=== PATIENT | male | born 1980 | race Caucasian/White ===

== ENCOUNTER 2024-10-15 11:20 | Emergency (ER) | payer OTHER, SELFPAY ==
[2024-10-15 11:21] VITALS: BMI 25.7
[2024-10-15 11:33] VITALS: BP 143/93; PULSE 60; RESP 18; TEMP 36.9; O2SAT 97
--- NOTE | 2024-10-15 11:33 | EKG_ITS ---
[facility] Test Date: 2024-10-15 Pat Name: CELINA TODD Department: Room: - Gender: Male [employer]: : 1980 Requested By: Luis Sandy Order Number: [id number] Reading MD: Luis Sandy Measurements Intervals [place] Rate: 62 P: 67 NM: 178 QRS: 81 QRSD: 84 T: 48 QT: 355 QTc: 363 Interpretive Statements SINUS RHYTHM NONSPECIFIC T-WAVE ABNORMALITY No previous ECG available for comparison /[id number]/[id number]
--- NOTE | 2024-10-15 11:33 | XR_ITS ---
Examination: CT brain head without contrast. 2-D sagittal coronal reconstructions Date and time of exam 01/15/2025 1311 hours INDICATIONS: Paresthesias to the face with dizziness today CTDI: vol (mGy):50 DLP: (mGycm):958 Technique: Multiple CT axial sections of the brain have been obtained, 5 mm slice thickness. Contrast has not been administered. 2-D sagittal, coronal reconstructions have been obtained Low dose protocols were performed. One or more of the following dose reduction techniques were used; automated exposure control, adjustment of the mA and/or KV according to patient size, use of iterative reconstruction technique. Findings: No significant ventricular enlargement. Intra-axial or extra-axial hemorrhage density is not seen. No mass effect or midline shift Basal cisterns are not remarkable. Fourth ventricle is midline. Cranial vault intact. Impression: Negative for acute hemorrhage, mass effect or midline shift Advise clinical correlation follow-up accordingly
--- NOTE | 2024-10-15 11:33 | XR_ITS ---
Examination: PA lateral chest 2 views TECHNIQUE: Upright PA lateral chest 2 views Date and time: October 15, 2024 1151 hours Comparison September 14, 2014 INDICATIONS: Dizziness today. FINDINGS: Normal heart size. Lungs are clear. Moderate osteopenia with old left-sided rib fractures IMPRESSION: No active disease
--- NOTE | 2024-10-15 11:35 | EDRME_ITS ---
Rapid Medical Screening Exam [facility] Arrival date/time: 10/15/24 11:20 44-year-old male with no known medical history presents to the emergency room with a chief complaint of dizziness, lightheadedness, difficulty concentrating, chest pain and facial tingling that began yesterday afternoon. Patient was seen by Dr. Juares his primary care provider and was sent to the emergency room. I have greeted and performed a focused initial assessment of this patient. A comprehensive ED assessment and evaluation of the patient, analysis of all test results, and completion of the medical decision making process will be conducted by additional ED providers. Chief Complaint: General Adult/Misc Complain Vital signs: Vital Signs Temperature 98.5 F 10/15/24 11:33 Pulse Rate 60 10/15/24 11:33 Respiratory Rate 18 10/15/24 11:33 Blood Pressure 143/93 H 10/15/24 11:33 Pulse Oximetry (%) 97 10/15/24 11:33 Oxygen Delivery Method Room Air 10/15/24 11:33 Vital signs reviewed by provider: Yes
[2024-10-15 12:09] LABS: Basophils # (Auto) 0.1 Thou/mm3 (0.0-0.2); Basophils % (Auto) 1 % (0-2.5); Eosinophils # (Auto) 0.1 Thou/mm3 (0.0-0.5); Eosinophils % (Auto) 2 % (0-10); Hematocrit 46.2 % (41.0-53.0); Hemoglobin 16.1 g/dL (13.5-16.0); Immature Granulocytes % (Auto) 1 % (0-0); Immature Granulocytes Auto 0.05 Thou/mm3 (0.00-0.00); Lymphocytes # (Auto) 2.2 Thou/mm3 (1.0-4.8); Lymphocytes % (Auto) 33 % (10-50); Mean Corpuscular HGB Conc 34.8 g/dl (31.0-37.0); Mean Corpuscular Hemoglobin 30.4 pg (25.0-35.0); Mean Corpuscular Volume 87 fL (80-100); Monocytes # (Auto) 0.7 Thou/mm3 (0.0-0.8); Monocytes % (Auto) 10 % (0-12); Neutrophils # (Auto) 3.6 Thou/mm3 (1.8-7.7); Neutrophils % (Auto) 54 % (37-80); Nucleated Red Blood Cell % 0 /100 WBC (0); Platelet Count 160 Thou/mm3 (140-440); Red Blood Count 5.29 Miln/mm3 (4.50-5.90); White Blood Count 6.7 Thou/mm3 (3.8-10.6)
[2024-10-15 12:13] LABS: Collection Type, Urine Clean Catch; Squamous Epithelial Cell,Urine 0 /hpf (0-5)
[2024-10-15 12:32] LABS: B-Type Natriuretic Peptide 22 pg/mL (0-100)
[2024-10-15 12:41] LABS: Bilirubin,Urine Negative (Negative); Blood,Urine Negative (Negative); Clarity,Urine Clear (Clear/Hazy); Color,Urine Colorless (Lt Yel-Yel); Glucose, Urine Negative (Negative); Ketones,Urine Negative (Negative); Leukocyte Esterase,Urine Negative (Negative); Nitrite,Urine Negative (Negative); PH,Urine 6.5 (5.0-7.0); Protein,Urine Negative (Neg - Trace); RBC,Urine < 1 /hpf (0-3); Specific Gravity,Urine 1.007 (1.001-1.035); Urobilinogen,Urine Negative mg/dL (0.0-1.0); WBC,Urine < 1 /hpf (0-5)
[2024-10-15 12:41] LABS: Alanine Aminotransferase 93 U/L (10-49); Albumin, Serum 4.6 gm/dL (3.5-5.0); Albumin/Globulin Ratio 1.8 (1.2-2.2); Alkaline Phosphatase 71 U/L (46-116); Anion Gap 8 (7-16); Aspartate Amino Transferase 56 U/L (0-34); BUN/Creatinine Ratio 16 Ratio (12-20); Bilirubin,Total 0.6 mg/dL (0.3-1.2); Blood Urea Nitrogen 19 mg/dL (9-23); Calcium 9.2 mg/dL (8.3-10.6); Calcium (Corrected) 9.2 mg/dL (8.5-10.1); Carbon Dioxide 27.6 mMol/L (20.0-31.0); Chloride 103 mMol/L (98-107); Creatine Kinase 518 U/L (34-171); Creatinine (Component) 1.2 mg/dL (0.6-1.3); Free T4 (Free Thyroxine) 1.24 ng/dL (0.89-1.76); Globulin 2.6 gm/dL (2.3-3.5); Glucose 114 mg/dL (74-106); Magnesium 2.1 mg/dL (1.6-2.6); Osmolality,Calculated 280 (275-295); Potassium 4.3 mMol/L (3.4-5.1); Sodium 139 mMol/L (136-145); Thyroid Stimulating Hormone 2.37 uIU/mL (0.55-4.78); Total Protein 7.2 gm/dL (5.7-8.2); Troponin I < 0.020 ng/mL (0.0-0.045); eGFR > 60 See Note
[2024-10-15 13:25] LABS: Amphetamine/Methamp Scrn,U Negative (Negative); Barbiturate Screen,Urine Negative (Negative); Benzodiazepines Screen,Urine Negative (Negative); Benzoylecgonine Screen, Ur Negative (Negative); Opiate Screen,Urine Negative (Negative); THC Screen,Urine Negative (Negative)
[2024-10-15 14:36] LABS: Fentanyl Screen,Urine Negative (Negative)
[2024-10-15 16:45] LABS: Troponin I < 0.020 ng/mL (0.0-0.045)
--- NOTE | 2024-10-15 17:09 | PD.EDADULT ---
ED General RME/HPI General Chief complaint: General Adult/Misc Complain Stated complaint: DIZZY, TROUBLE SPEAKING, CHEST PAIN SINCE 7PM Time Seen by Provider: 10/15/24 17:03 Arrival date/time: 10/15/24 11:20 RME / HPI RME / HPI narrative: 44-year-old male with no known medical history presents to the emergency room with a chief complaint of dizziness, lightheadedness, difficulty concentrating, chest pain and facial tingling that began yesterday afternoon. Symptoms is almost gone now. Patient was seen by Dr. Juares his primary care provider and was sent to the emergency room. Patient is ambulatory. Denies any fever. Denies any head trauma or fall. Related Data Allergies Allergy/AdvReac Type Severity Reaction Status Date / Time NKA* Allergy Uncoded 10/15/24 11:23 Review of Systems Review of Systems Narrative Review of Systems: Review of system reviewed and within normal limits except mentioned in HPI ED Exam Narrative Physical exam: VITAL SIGNS: Reviewed. GENERAL APPEARANCE: Alert and interactive, follows commands, no acute distress, HEAD AND FACE: Non-traumatic. ENT: PERRL, pink conjunctivitis, eyelid no trauma, Mucous membrane moist. NECK: Supple, nontender, no nuchal rigidity. CHEST: No tenderness, no crepitus, no paradoxical movement, no retractions. LUNGS: Clear, well ventilated, symmetric, no rales, no wheezing, no ronchi, no stridor, good breath sounds bilaterally. HEART: Regular rate, regular rhythm, no murmur, no gallops. ABDOMEN: Soft, positive bowel sounds, nondistended, no guarding, nontender, no rebound, no masses, RECTAL: Deferred. GENITAL: Deferred. NEUROLOGICAL: Gross motor function intact sensory function intact, Appropriate for age. MUSCULOSKELETAL: low back nontender, full range of motion. EXTREMITIES: Nontender, full range of motion. SKIN: Color pink, dry, no rash, no lacerations, no abrasions, no contusions. LYMPHATICS: Deferred. Course Quality Measures none Orders Category Date Time Status EKG (ED ONLY) *Do not use* NOW Care 10/15/24 11:[address] head/brain wo con Stat Exams 10/15/24 11:33 Completed EKG (ED Only) Stat Exams 10/15/24 11:33 Draft XR chest 2V Stat Exams 10/15/24 11:33 Completed B-Type Natriuretic Peptide Stat Lab 10/15/24 11:49 Completed CBC Stat Lab 10/15/24 11:49 Completed CK [Creatine Kinase] Stat Lab 10/15/24 11:49 Completed Comprehensive Metabolic Panel Stat Lab 10/15/24 11:49 Completed Drug Screen,Urine Stat Lab 10/15/24 12:08 Completed Free T4 (Free Thyroxine) Stat Lab 10/15/24 11:49 Completed Magnesium Stat Lab 10/15/24 11:49 Completed TSH [Thyroid Stimulating Hormone] Stat Lab 10/15/24 11:49 Completed Troponin I Stat Lab 10/15/24 11:49 Completed Troponin I Stat Lab 10/15/24 16:10 Completed Urinalysis Stat Lab 10/15/24 12:08 Completed Vital Signs Vital signs: Vital Signs Temperature 98.5 F 10/15/24 11:33 Pulse Rate 60 10/15/24 11:33 Respiratory Rate 18 10/15/24 11:33 Blood Pressure 143/93 H 10/15/24 11:33 Pulse Oximetry (%) 97 10/15/24 11:33 Oxygen Delivery Method Room Air 10/15/24 11:33 Discharge Plan Plan Patient Disposition: HOME (Self Care) Discharge Disposition comment: Stable Prescriptions/Referrals Referrals: Holley Juares MD [Primary Care Provider] - In 1 week Problem List Clinical Impression: Headache Patient/Caregiver Discharge Instructions Discharge Activity: activity as tolerated Education Materials: Self-Care for Headaches Additional Instructions: Thank you for the opportunity for serving you today. You are stable for discharged . You are advised to: Follow-up with your PCP in 1 to 2 days Return to ED for worsening of symptoms Increase oral fluids Take [id number] Tylenol or Motrin as needed for headache Print Language: Pashto Stand Alone Forms: Tabitha Award Info., Patient Portal Info Letter PA/B[employer]K [employer] INSTALLER Supervising Physician PA/JOSE D Supervising Physician: MD Miriam MDM Narrative MDM hospital course (for use when minimal MDM required): 44-year-old male with no known medical history presents to the emergency room with a chief complaint of dizziness, lightheadedness, difficulty concentrating, chest pain and facial tingling that began yesterday afternoon. Symptoms is almost gone now. Patient was seen by Dr. Juares his primary care provider and was sent to the emergency room. Patient is ambulatory. Denies any fever. Denies any head trauma or fall. CT scan of the head came back unremarkable. Patient's workup also came back unremarkable urinalysis no UTI. Prior to discharge patient was noted to be ambulatory straight gait, denies any headache denies any dizziness denies any symptoms. Patient appears nontoxic and hemodynamically stable. Patient discharged home and instructed to follow-up with primary care provider in 24 to 48 hours. Instructed to return to the emergency department immediately if worsening of symptoms Medical Records reviewed None Meds/Rx considered, not ordered None Labs/Rad/Tests considered, not ordered None Chronic Illness/Social Conditions which may negatively complicate care or outcome(s)-explain: None or not applicable EKG EKG not done EKG Interpretation EKG #1: EKG Interpretation: EKG as interpreted by me is showed normal sinus rhythm, ventricular rate of 60 bpm, no ST segment elevation or depression noted. Labs Labs: none Lab(s) Interpretation(s): Unremarkable. Imaging Imaging Interpretation(s): CT scan of the head came back unremarkable. Medication Administration(s) none None Diagnosis Differential Diagnosis ED Complaint MDM: Dizziness, headache, CVA, TIA Diagnoses ruled out and/or further discussions: Dizziness
== END 2024-10-15 17:20 | disposition home or self-care (01) ==
PROVIDERS: Nurse Practitioner Family; Emergency Provider Emergency Medicine; PCP Family Medicine
DX: R51.9 Headache, unspecified (principal); R42 Dizziness and giddiness; R07.9 Chest pain, unspecified; R20.2 Paresthesia of skin
CPT/HCPCS: 36415; 70450; 71046; 80053; 80307; 81001; 82550; 83735; 83880; 84439; 84443; 84484; 85025; 93005; 99284

== ENCOUNTER → 2024-10-27 | Outpatient (CLI) | payer OTHER, SELFPAY ==
[2024-10-27 09:55] LABS: Glucose Estimated Average 103 mg/dL (80-131); Hemoglobin A1C 5.2 % Hgb (4.8-6.0)
[2024-10-27 10:01] LABS: Parathyroid Hormone Intact 46.4 pg/ml (18.5-88.0)
[2024-10-27 10:04] LABS: Cardiac Risk Estimate 3.9 RATIO (4.0-6.7); Cholesterol 167 mg/dL (132-200); HDL Cholesterol 43 mg/dL (40-60); LDL Cholesterol,Calculated 103 mg/dL (0-130); Thyroid Stimulating Hormone 1.28 uIU/mL (0.55-4.78); Triglycerides 103 mg/dL (30-150)
[2024-10-27 10:20] LABS: Vitamin B12 450 pg/mL (211-911); Vitamin D 25 Hydroxy Total 68.5 ng/mL (7.3-40.2)
[2024-11-02 07:39] LABS: Testosterone, Total, Dialysis 564 ng/dL (250-1100)
== END | disposition home or self-care (01) ==
LOC: COPL 08:07
PROVIDERS: PCP Family Medicine; Referring Provider Nurse Practitioner Family; Visit Provider Nurse Practitioner Family
DX: R42 Dizziness and giddiness (principal); M85.88 Other specified disorders of bone density and structure, other site; R07.9 Chest pain, unspecified; Z12.5 Encounter for screening for malignant neoplasm of prostate
CPT/HCPCS: 36415; 80061; 82306; 82607; 83036; 83970; 84402; 84403; 84443

== ENCOUNTER → 2024-11-03 | Outpatient (CLI) | payer OTHER, SELFPAY ==
--- NOTE | 2024-11-03 14:00 | XR_ITS ---
Examination: Abdomen sonogram, Limited Date and time of exam: November 03, 2024 1355 hours INDICATIONS: Elevated liver function tests on laboratory examination today Technique: Real-time pena scale transabdominal sonographic images of the upper abdomen obtained. Findings: Normal gallbladder Normal common bile duct 0.2 cm Pancreatic head 2.3 cm Liver 16.5 cm smooth contour no focal liver lesions Normal hepatopedal portal venous flow Patent IVC IMPRESSION: Normal gallbladder Normal common bile duct Mild hepatomegaly
== END | disposition home or self-care (01) ==
LOC: CDIM 13:37
PROVIDERS: PCP Nurse Practitioner Family; Referring Provider Nurse Practitioner Family; Visit Provider Nurse Practitioner Family
DX: R16.0 Hepatomegaly, not elsewhere classified (principal)
CPT/HCPCS: 76705

== ENCOUNTER → 2024-11-24 | Outpatient (CLI) | payer OTHER, SELFPAY ==
--- NOTE | 2024-11-24 13:00 | XR_ITS ---
Examination: Bone densitometry Date and time of exam:November 24, 2024 1325 hours INDICATIONS: Vitamin D 2 years, testosterone 2 weeks, prior chest x-ray osteopenia with old left rib fractures Technique: Lumbar spine and hip total bone mineralization values of an calculated. Peak reference and age match control results have been displayed. Findings: Lumbar spine total bone mineralization is1.070 gm/cm2. This is 0.2 standard deviations below peak reference. This is 0.0 standard deviations at age-matched controls. Hip total bone mineralization is 1.045 gm/cm2 This is 0.1 standard deviations above peak reference. This is 0.3 standard deviations above age-matched controls Impression: There is normal mineralization based on lumbar spine measurements. There is normal mineralization based on hip measurements
== END | disposition home or self-care (01) ==
PROVIDERS: PCP Nurse Practitioner Family; Referring Provider Nurse Practitioner Family; Visit Provider Nurse Practitioner Family
DX: M85.88 Other specified disorders of bone density and structure, other site (principal)
CPT/HCPCS: 77080